=== PATIENT | male | born 1960 | race African-American/Black ===

== ENCOUNTER 2023-04-09 18:00 | Inpatient (IN) | payer SELFPAY ==
[~2023-04-09] VITALS: Ht 188 cm; Wt 108.6 kg
[2023-04-09] MEDS ORDERED: TETANUS, DIPHTHERIA, PERTUSSIS VAC/PF 0.5ML (>10YR OLD) IM ONE (19:00)
[2023-04-09 21:17] LABS: BASOPHILS % 0.6 % (0.0-2.0); EOSINOPHILS % 0.9 % (0.0-5.0); HEMATOCRIT. 38.7 % (42.0-52.0); HEMOGLOBIN. 12.7 g/dL (14.0-18.0); LYMPHOCYTES % 13.8 % (20.0-50.0); MEAN CORPUSCULAR HEMOGLOBIN 30.1 pg (28.0-32.0); MEAN CORPUSCULAR HGB CONC 32.8 g/dL (31.0-37.0); MEAN CORPUSCULAR VOLUME 91.7 fL (80.0-94.0); MEAN PLATELET VOLUME 9.7 fl (7.4-10.4); MONOCYTES % 11.4 % (2.0-8.0); NEUTROPHILS % 73.3 % (40.0-76.0); PLATELET 167 x1000/uL (130-400); RED BLOOD CELL COUNT 4.22 mill/uL (4.7-6.1); RED CELL DISTRIBUTION WIDTH 15.8 % (11.6-14.6); WHITE BLOOD COUNT 9.6 x1000/uL (4.5-11.0)
[2023-04-09] MEDS ORDERED: LEVETIRACETAM 500MG PREMIX 100 ML IV ONE ×2 (21:30)
[2023-04-09 21:36] LABS: ALANINE AMINOTRANSFERASE 50 IU/L (10-49); ALBUMIN 3.7 g/dL (3.2-4.8); ASPARTATE AMINOTRANSFERASE 171 IU/L (<34); CALCIUM 8.4 mg/dL (8.7-10.4); CARBON DIOXIDE 27 mEq/L (21-32); CHLORIDE 107 mEq/L (98-107); CREATINE KINASE 6384 IU/L (46-171); CREATININE 0.7 mg/dL (0.6-1.3); GLUCOSE 86 mg/dL (70-105); POTASSIUM 3.1 mEq/L (3.5-5.1); PROTEIN TOTAL 6.2 g/dL (6.0-8.3); SODIUM 140 mEq/L (136-145); UREA NITROGEN BLOOD 22 mg/dL (9-23)
[2023-04-09] MEDS ORDERED: POTASSIUM CHLORIDE 20MEQ/PACKET PO ONE (22:00)
[2023-04-10 01:10] VITALS: BP 116/86; PULSE 79; RESP 20; TEMP 98.2
[2023-04-10] MEDS ORDERED: ACETAMINOPHEN 325MG TABLET PO PRN ×2 (02:00)
[2023-04-10] MEDS ORDERED: MAGNESIUM/ALUMINUM HYDROXIDE/SIMETHICONE 30ML UDC PO PRN (02:00)
[2023-04-10] MEDS ORDERED: CLONIDINE 0.1MG TABLET PO PRN (02:00)
[2023-04-10] MEDS ORDERED: DOCUSATE SODIUM 100MG CAPSULE PO PRN (02:00)
[2023-04-10] MEDS ORDERED: LEVETIRACETAM 500 MG in SODIUM CHLORIDE 0.9% 100 ML IV SCH (02:00)
[2023-04-10] MEDS ORDERED: IPRATROPIUM/ALBUTEROL 0.5-3(2.5)MG/3ML NEB HHN PRN (02:00)
[2023-04-10] MEDS ORDERED: ONDANSETRON HCL 4MG/2ML INJ IV PRN (02:00)
[2023-04-10] MEDS ORDERED: GUAIFENESIN 200MG/10ML SUGAR FREE UDC PO PRN (02:00)
[2023-04-10] MEDS ORDERED: DEXTROSE 50% WATER 50ML SYRINGE IV PRN (03:15)
[2023-04-10 04:00] VITALS: BP 130/80; PULSE 79; RESP 20; TEMP 98.2
[2023-04-10] MEDS: PANTOPRAZOLE 40MG DR TABLET PO SCH (06:23)
[2023-04-10] MEDS: BLOOD SUGAR DIAGNOSTIC STRIP TEST SCH ×4 (06:25→21:48)
[2023-04-10] MEDS: INSULIN LISPRO 100 UNITS/ML SUBCUT SCH ×4 (07:40→21:00)
[2023-04-10 08:00] VITALS: BP 140/82; PULSE 88; RESP 16; TEMP 98.6
[2023-04-10] MEDS: LACTATED RINGERS 1,000 ML IV SCH ×2 (08:00→13:46)
[2023-04-10] MEDS ORDERED: LEVETIRACETAM 500MG PREMIX 100 ML IV SCH ×2 (09:00→10:00)
[2023-04-10] MEDS: ENOXAPARIN 40MG/0.4ML SYR SUBCUT SCH (09:40)
[2023-04-10 12:00] VITALS: BP 128/70; PULSE 84; RESP 16; TEMP 98
[2023-04-10] MEDS: SODIUM CHLORIDE 0.45% 1,000 ML IV SCH (19:00)
[2023-04-10 20:00] VITALS: BP 96/61; PULSE 76; RESP 20; TEMP 97.9
[2023-04-10] MEDS: LEVETIRACETAM 500MG TABLET PO SCH (21:50)
[2023-04-11] VITALS: BP 127/77; PULSE 74; RESP 20; TEMP 97.2
[2023-04-11 04:00] VITALS: BP 140/81; PULSE 59; RESP 20; TEMP 97.8
[2023-04-11] MEDS: SODIUM CHLORIDE 0.45% 1,000 ML IV SCH (04:15)
[2023-04-11] MEDS: PANTOPRAZOLE 40MG DR TABLET PO SCH (06:12)
[2023-04-11] MEDS: BLOOD SUGAR DIAGNOSTIC STRIP TEST SCH ×2 (06:13→12:56)
[2023-04-11] MEDS: INSULIN LISPRO 100 UNITS/ML SUBCUT SCH ×2 (07:40→12:40)
[2023-04-11 08:00] VITALS: BP 110/47; PULSE 69; RESP 20; TEMP 97.9
[2023-04-11 08:17] LABS: BASOPHILS % 0.5 % (0.0-2.0); EOSINOPHILS % 2.4 % (0.0-5.0); HEMATOCRIT. 40.9 % (42.0-52.0); HEMOGLOBIN. 13.7 g/dL (14.0-18.0); LYMPHOCYTES % 9.9 % (20.0-50.0); MEAN CORPUSCULAR HEMOGLOBIN 30.2 pg (28.0-32.0); MEAN CORPUSCULAR HGB CONC 33.5 g/dL (31.0-37.0); MEAN PLATELET VOLUME 9.9 fl (7.4-10.4); MONOCYTES % 11.1 % (2.0-8.0); NEUTROPHILS % 76.1 % (40.0-76.0); PLATELET 146 x1000/uL (130-400); RED BLOOD CELL COUNT 4.54 mill/uL (4.7-6.1); RED CELL DISTRIBUTION WIDTH 15.7 % (11.6-14.6); WHITE BLOOD COUNT 4.9 x1000/uL (4.5-11.0)
[2023-04-11 08:41] LABS: ALANINE AMINOTRANSFERASE 47 IU/L (10-49); ALBUMIN 3.3 g/dL (3.2-4.8); ASPARTATE AMINOTRANSFERASE 83 IU/L (<34); BILIRUBIN TOTAL 0.4 mg/dL (0.1-1.0); CALCIUM 8.4 mg/dL (8.7-10.4); CARBON DIOXIDE 27 mEq/L (21-32); CHLORIDE 104 mEq/L (98-107); CHOLESTEROL 140 mg/dL (<200); CREATINE KINASE 1220 IU/L (46-171); CREATININE 0.7 mg/dL (0.6-1.3); GLUCOSE 108 mg/dL (70-105); HDL CHOLESTEROL 27 mg/dL (>55); IRON 43 ug/dL (65-175); LDL CHOLESTEROL 104 mg/dL (5-100); PHOSPHORUS 2.6 mg/dL (2.5-4.9); POTASSIUM 3.9 mEq/L (3.5-5.1); PROTEIN TOTAL 5.9 g/dL (6.0-8.3); SODIUM 138 mEq/L (136-145); THYROID STIMULATING HORMONE 3.26 uIU/mL (0.55-4.78); TOTAL IRON BINDING CAPACITY 220 ug/dl (250-425); TRIGLYCERIDE 135 mg/dL (0-150); UREA NITROGEN BLOOD 18 mg/dL (9-23)
[2023-04-11] MEDS: ENOXAPARIN 40MG/0.4ML SYR SUBCUT SCH (09:15)
[2023-04-11] MEDS: LEVETIRACETAM 500MG TABLET PO SCH (09:15)
[2023-04-11 11:59] VITALS: BP 120/74; PULSE 88; TEMP 98; O2SAT 99
[2023-04-11 12:00] VITALS: BP 130/78; PULSE 82; RESP 16; TEMP 98
[2023-04-11] MEDS ORDERED: MAGNESIUM 2 G PREMIX 50 ML IV NR (12:00)
[2023-04-11 12:13] LABS: FOLIC ACID (FOLATE) SERUM 8.92 ng/mL (>5.38); VITAMIN B12 SERUM 486 pg/mL (211-911)
[2023-04-11] MEDS ORDERED: TOPUD PO (15:10)
[2023-04-11] MEDS ORDERED: KEPP500 PO (15:10)
[2023-04-12] MEDS ORDERED: FAMOTIDINE 20MG TABLET PO SCH (07:10)
== END 2023-04-11 15:12 | disposition home or self-care (01) | DRG 53 ==
LOC: ER 18:00 → MICUSO 22:17 → EDBEDREQ 22:20 → 8WST 04-10 02:54
PROVIDERS: ADMIT Internal Medicine; ATTEND Internal Medicine
PROC: 0HQ0XZZ Repair Scalp Skin, External Approach (ICD-10-PCS; principal; 2023-04-09)
DX: G40.909 Epilepsy, unspecified, not intractable, without status epilepticus (principal); M62.82 Rhabdomyolysis; E87.6 Hypokalemia; S01.01XA Laceration without foreign body of scalp, initial encounter; E11.9 Type 2 diabetes mellitus without complications; J44.9 Chronic obstructive pulmonary disease, unspecified; E83.42 Hypomagnesemia; E80.6 Other disorders of bilirubin metabolism; F17.210 Nicotine dependence, cigarettes, uncomplicated; Z91.148 Patient's other noncompliance with medication regimen for other reason; Z86.73 Personal history of transient ischemic attack (TIA), and cerebral infarction without residual deficits; Z59.00 Homelessness unspecified; Z79.899 Other long term (current) drug therapy; W18.30XA Fall on same level, unspecified, initial encounter; Y93.89 Activity, other specified; Y92.89 Other specified places as the place of occurrence of the external cause; Y99.8 Other external cause status
CPT/HCPCS: 36415; 80053; 80061; 82550; 82607; 82746; 82962; 83036; 83540; 83550; 83735; 84100; 84439; 84443; 85025; 90715; 93005; 93306; 93970; 97166; 99285; J1650; J1953; J3475; J7120

== ENCOUNTER 2024-06-11 02:10 | Emergency (ER) | payer MEDICAID, OTHER ==
[~2024-06-11] VITALS: Ht 188 cm; Wt 87.0 kg
[~2024-06-11 02:10] MED LIST: KEPP500 PO; TOPUD PO
[2024-06-11 02:18] VITALS: O2SAT 97
[2024-06-11] MEDS: LIDOCAINE 5% PATCH TOP SCH (03:00)
[2024-06-11] MEDS: CYCLOBENZAPRINE 10MG TABLET PO ONE (03:31)
[2024-06-11] MEDS: KETOROLAC 15MG/ML VIAL IM ONE (03:31)
[2024-06-11 03:58] VITALS: BP 109/77; PULSE 62; RESP 18; TEMP 36.9; O2SAT 97
[2024-06-11] MEDS ORDERED: NAPR-1176 MT (04:01)
[2024-06-11] MEDS ORDERED: LIDO700A15 TP (04:01)
== END 2024-06-11 04:09 | disposition home or self-care (01) ==
LOC: ER 02:10
DX: M54.50 Low back pain, unspecified (principal); I10 Essential (primary) hypertension; F19.90 Other psychoactive substance use, unspecified, uncomplicated
CPT/HCPCS: 99283; 96372; J1885

== ENCOUNTER 2024-08-08 21:58 | Emergency (ER) | payer MEDICAID ==
[~2024-08-08] VITALS: Ht 182.9 cm; Wt 100.0 kg
[~2024-08-08 21:58] MED LIST changes: +LIDO700A15 TP; +NAPR-1176 MT
[2024-08-08 22:08] VITALS: BP 136/80; PULSE 88; RESP 18; TEMP 37; O2SAT 99
== END 2024-08-08 23:02 | disposition home or self-care (01) ==
LOC: ER 21:58
DX: E11.65 Type 2 diabetes mellitus with hyperglycemia (principal); I10 Essential (primary) hypertension; Z59.00 Homelessness unspecified; Z79.1 Long term (current) use of non-steroidal anti-inflammatories (NSAID)
CPT/HCPCS: 99283

== ENCOUNTER 2024-08-09 00:08 | Emergency (ER) | payer MEDICAID ==
[~2024-08-09] VITALS: Ht 177.8 cm; Wt 73.0 kg
[2024-08-09 00:13] VITALS: O2SAT 98
[2024-08-09 00:14] VITALS: BP 109/85; PULSE 68; RESP 16; TEMP 36.7; O2SAT 98
== END 2024-08-09 07:47 | disposition home or self-care (01) ==
LOC: ER 00:08
DX: I10 Essential (primary) hypertension (principal); Z00.00 Encounter for general adult medical examination without abnormal findings; E11.9 Type 2 diabetes mellitus without complications; Z79.1 Long term (current) use of non-steroidal anti-inflammatories (NSAID)
CPT/HCPCS: 99281

== ENCOUNTER 2024-08-09 06:31 | Emergency (ER) | payer MEDICAID ==
[~2024-08-09] VITALS: Ht 182.9 cm; Wt 91.0 kg
[2024-08-09 06:44] VITALS: O2SAT 98
[2024-08-09 06:45] VITALS: BP 145/82; PULSE 77; RESP 16; TEMP 36.6; O2SAT 96
== END 2024-08-09 10:01 | disposition home or self-care (01) ==
LOC: ER 06:31
DX: Z00.8 Encounter for other general examination (principal); Z59.00 Homelessness unspecified; E11.9 Type 2 diabetes mellitus without complications; I10 Essential (primary) hypertension; Z79.1 Long term (current) use of non-steroidal anti-inflammatories (NSAID); Z79.899 Other long term (current) drug therapy
CPT/HCPCS: 99281

== ENCOUNTER 2024-12-19 05:15 | Inpatient (IN) | payer OTHER, MEDICAID ==
[~2024-12-19] VITALS: Ht 182.9 cm; Wt 90.8 kg
[~2024-12-19 05:15] MED LIST changes: +LIDO-53 TP; -LIDO700A15 TP; -NAPR-1176 MT; -TOPUD PO
[2024-12-19 05:40] VITALS: PULSE 91; RESP 20; O2SAT 98
[2024-12-19] MEDS: IPRATROPIUM BROMIDE (0.02%) 0.5MG/2.5ML NEB HHN SCH (05:40)
[2024-12-19] MEDS: ALBUTEROL (0.083%) 2.5MG/3ML NEB HHN SCH (05:40)
[2024-12-19] MEDS: METHYLPREDNISOLONE SOD SUCC 125MG/2ML (ACT-O-VIAL) IV ONE (05:49)
[2024-12-19] MEDS: MAGNESIUM 2 G PREMIX 50 ML IV ONE (05:50)
[2024-12-19 06:55] LABS: BASOPHILS % 0.6 % (0.0-2.0); EOSINOPHILS % 0.6 % (0.0-5.0); HEMATOCRIT. 42.4 % (42.0-52.0); HEMOGLOBIN. 13.8 g/dL (14.0-18.0); LYMPHOCYTES % 12.9 % (20.0-50.0); MEAN PLATELET VOLUME 9.0 fl (7.4-10.4); MONOCYTES % 11.2 % (2.0-8.0); NEUTROPHILS % 74.7 % (40.0-76.0); PLATELET 227 x1000/uL (130-400); RED BLOOD CELL COUNT 4.74 mill/uL (4.7-6.1); RED CELL DISTRIBUTION WIDTH 16.2 % (11.6-14.6)
[2024-12-19 06:59] LABS: CREATININE 0.9 mg/dL (0.6-1.3); UREA NITROGEN BLOOD 21 mg/dL (9-23)
[2024-12-19 07:06] LABS: TROPONIN I HIGH SENSITIVITY 90 ng/L (3.0-53)
[2024-12-19 08:00] VITALS: BP 136/96; PULSE 84; RESP 18; TEMP 36; O2SAT 100
[2024-12-19 08:52] LABS: TROPONIN I HIGH SENSITIVITY 91 ng/L (3.0-53)
[2024-12-19] MEDS ORDERED: DOCUSATE SODIUM 100MG CAPSULE PO PRN (11:00)
[2024-12-19] MEDS ORDERED: CLONIDINE 0.1MG TABLET PO PRN (11:00)
[2024-12-19] MEDS ORDERED: IPRATROPIUM/ALBUTEROL 0.5-3(2.5)MG/3ML NEB HHN PRN (11:00)
[2024-12-19] MEDS ORDERED: ACETAMINOPHEN 325MG TABLET PO PRN ×2 (11:00)
[2024-12-19] MEDS ORDERED: ONDANSETRON HCL 4MG/2ML INJ IV PRN (11:00)
[2024-12-19 11:07] LABS: CLARITY URINE CLEAR (CLEAR); COLOR URINE YELLOW (YELLOW); GLUCOSE URINE NEGATIVE (NEGATIVE); KETONES URINE NEGATIVE (NEGATIVE); LEUKOCYTE ESTERASE URINE NEGATIVE (NEGATIVE); NITRITE URINE NEGATIVE (NEGATIVE); OCCULT BLOOD URINE NEGATIVE (NEGATIVE); PH URINE 6.0 (4.5-8.0); PROTEIN URINE 1+ (NEGATIVE); SPECIFIC GRAVITY URINE 1.021 (1.005-1.030); UROBILINOGEN URINE 1.0 E.U./dL (0.2-1.0)
[2024-12-19 11:29] LABS: MUCUS URINE TRACE /lpf (NONE/TRACE)
[2024-12-19 11:30] LABS: SQUAMOUS EPITHELIAL CELL URINE RARE /lpf (RARE/1+); WBC URINE 0-2 /hpf (0-2)
[2024-12-19 11:31] LABS: BACTERIA URINE TRACE; RBC URINE 0-2 /hpf (0-2)
[2024-12-19 11:38] LABS: *AMPHETAMINES SCREEN URINE NEGATIVE (NEGATIVE); *BARBITURATES SCREEN URINE NEGATIVE (NEGATIVE); *BENZODIAZEPINES SCREEN URINE NEGATIVE (NEGATIVE); *COCAINE SCREEN URINE PRESUMPTIVE POSITIVE (NEGATIVE)
[2024-12-19 11:39] LABS: CANNABINOID URINE SCREEN PRESUMPTIVE POSITIVE (NEGATIVE); ECSTASY MDMA SCREEN URINE NEGATIVE (NEGATIVE); METHADONE URINE SCREEN NEGATIVE (NEGATIVE); OPIATES URINE SCREEN NEGATIVE (NEGATIVE); PHENCYCLIDINE URINE SCREEN NEGATIVE (NEGATIVE)
[2024-12-19 12:00] VITALS: BP 137/92; PULSE 83; RESP 18; TEMP 36.2; O2SAT 98
[2024-12-19 15:01] LABS: BG BASE EXCESS 1.4 mmol/L (-2.0-3.0); BG CARBOXYHEMOGLOBIN 1.0 % (0.5-1.5); BG DEOXYHEMOGLOBIN 4.6 % (0.0-5.0); BG FRACTION INSPIRED OXYGEN 21; BG HCO3 ACT 23.0 mmol/L (21.0-28.0); BG METHEMOGLOBIN 0.3 % (0.5-1.5); BG OXYGEN SATURATION 95.3 % (94.0-98.0); BG OXYHEMOGLOBIN 94.1 % (94.0-98.0); BG PCO2 28.6 mmHg (35.0-48.0); BG PH 7.524 (7.350-7.450); BG PO2 71.0 mmHg (83.0-108.0); BG SAMPLE SITE RIGHT RADIAL; BG TOTAL HEMOGLOBIN 14.1 g/dL (13.5-17.5); BG VENT MODE ROOM AIR
[2024-12-19 16:00] VITALS: BP 140/85; PULSE 74; RESP 19; TEMP 36.7
[2024-12-19 16:52] LABS: TROPONIN I HIGH SENSITIVITY 70 ng/L (3.0-53)
[2024-12-19 20:00] VITALS: BP 124/90; PULSE 84; RESP 18; TEMP 37
[2024-12-19] MEDS: LEVETIRACETAM 500MG TABLET PO SCH (20:53)
[2024-12-19] MEDS: BUDESONIDE 0.5MG/2ML NEB HHN SCH (21:05)
[2024-12-19] MEDS: IPRATROPIUM/ALBUTEROL 0.5-3(2.5)MG/3ML NEB HHN SCH (21:05)
[2024-12-20] VITALS (8 sets, daily range): BP systolic 117–146; BP diastolic 74–89; PULSE 20–88; RESP 16–22; TEMP 36.3–37.1; O2SAT 92–100
[2024-12-20 07:20] LABS: CREATININE 0.9 mg/dL (0.6-1.3); UREA NITROGEN BLOOD 19 mg/dL (9-23)
[2024-12-20 07:22] LABS: ASPARTATE AMINOTRANSFERASE 22 IU/L (<34); BILIRUBIN TOTAL 0.9 mg/dL (0.1-1.0); PROTEIN TOTAL 6.2 g/dL (6.0-8.3)
[2024-12-20 07:26] LABS: BASOPHILS % 0.4 % (0.0-2.0); EOSINOPHILS % 0.6 % (0.0-5.0); HEMATOCRIT. 42.7 % (42.0-52.0); HEMOGLOBIN. 13.8 g/dL (14.0-18.0); LYMPHOCYTES % 15.6 % (20.0-50.0); MEAN PLATELET VOLUME 9.1 fl (7.4-10.4); MONOCYTES % 12.2 % (2.0-8.0); NEUTROPHILS % 71.2 % (40.0-76.0); PLATELET 235 x1000/uL (130-400); RED BLOOD CELL COUNT 4.85 mill/uL (4.7-6.1); RED CELL DISTRIBUTION WIDTH 15.9 % (11.6-14.6)
[2024-12-20] MEDS: FUROSEMIDE 40MG/4ML VIAL IVP SCH (10:44)
[2024-12-20] MEDS: SPIRONOLACTONE 25MG TABLET PO SCH (11:12)
[2024-12-20] MEDS: LORAZEPAM 0.5MG TABLET PO SCH (11:13)
[2024-12-20] MEDS: METHYLPREDNISOLONE SOD SUCC 40MG/ML (ACT-O-VIAL) IV SCH (15:00)
[2024-12-20] MEDS ORDERED: ZOLPIDEM TARTRATE 5MG TABLET PO PRN (21:00)
[2024-12-20] MEDS: ENOXAPARIN 30MG/0.3ML SYR SUBCUT SCH (22:11)
[2024-12-21] VITALS: BP 110/64; PULSE 88; RESP 16; TEMP 36.3; O2SAT 99
[2024-12-21 04:00] VITALS: BP 119/86; PULSE 69; RESP 16; TEMP 36.5; O2SAT 100
[2024-12-21 08:00] VITALS: BP 109/71; PULSE 80; RESP 18; TEMP 36.1; O2SAT 95
[2024-12-21 09:53] VITALS: BP 132/57; PULSE 80; RESP 19; TEMP 36.1; O2SAT 95
== END 2024-12-21 12:27 | disposition left against medical advice (07) | DRG 133 ==
LOC: ER 05:15 → 5WST 06:26 → EDBEDREQ 06:36 → EDBEDREQTM 06:36 → ENRESERV 06:41 → 5WST 08:27
PROVIDERS: ADMIT Internal Medicine; ATTEND Internal Medicine
DX: J96.01 Acute respiratory failure with hypoxia (principal); I21.A1 Myocardial infarction type 2; I50.43 Acute on chronic combined systolic (congestive) and diastolic (congestive) heart failure; J44.1 Chronic obstructive pulmonary disease with (acute) exacerbation; I11.0 Hypertensive heart disease with heart failure; F14.10 Cocaine abuse, uncomplicated; E11.9 Type 2 diabetes mellitus without complications; Z20.822 Contact with and (suspected) exposure to COVID-19; Z53.29 Procedure and treatment not carried out because of patient's decision for other reasons; J98.4 Other disorders of lung; E78.5 Hyperlipidemia, unspecified; F17.210 Nicotine dependence, cigarettes, uncomplicated; Z59.00 Homelessness unspecified; Z79.899 Other long term (current) drug therapy; J68.0 Bronchitis and pneumonitis due to chemicals, gases, fumes and vapors
CPT/HCPCS: 36415; 36600; 71045; 80048; 80053; 80305; 81003; 82375; 82805; 83880; 84145; 84484; 85025; 87426; 93005; 94070; 94640; 94664; 99285; J1650; J1938; J2919; J3475; J7626

== ENCOUNTER 2025-03-19 17:32 | Inpatient (IN) | payer MEDICAID ==
[~2025-03-19] VITALS: Ht 175.3 cm; Wt 81.2 kg
[~2025-03-19 17:32] MED LIST changes: +ATOR40TA70 PO; +FURO40TA5 PO
[2025-03-19 20:56] LABS: GLUCOSE URINE NEGATIVE (NEGATIVE); KETONES URINE NEGATIVE (NEGATIVE); LEUKOCYTE ESTERASE URINE NEGATIVE (NEGATIVE); NITRITE URINE NEGATIVE (NEGATIVE); OCCULT BLOOD URINE NEGATIVE (NEGATIVE); PH URINE 5.0 (4.5-8.0); PROTEIN URINE 3+ (NEGATIVE); SPECIFIC GRAVITY URINE 1.022 (1.005-1.030); UROBILINOGEN URINE 1.0 E.U./dL (0.2-1.0)
[2025-03-19 20:59] LABS: *AMPHETAMINES SCREEN URINE NEGATIVE (NEGATIVE); *BARBITURATES SCREEN URINE NEGATIVE (NEGATIVE); *BENZODIAZEPINES SCREEN URINE NEGATIVE (NEGATIVE); *COCAINE SCREEN URINE PRESUMPTIVE POSITIVE (NEGATIVE); METHADONE URINE SCREEN NEGATIVE (NEGATIVE)
[2025-03-19 21:00] LABS: CANNABINOID URINE SCREEN PRESUMPTIVE POSITIVE (NEGATIVE); ECSTASY MDMA SCREEN URINE NEGATIVE (NEGATIVE); OPIATES URINE SCREEN NEGATIVE (NEGATIVE); PHENCYCLIDINE URINE SCREEN PRESUMTIVE POSITIVE (NEGATIVE)
[2025-03-19 21:11] LABS: HEMATOCRIT. 45.3 % (42.0-52.0); HEMOGLOBIN. 13.6 g/dL (14.0-18.0); MEAN PLATELET VOLUME 9.7 fl (7.4-10.4); PLATELET 191 x1000/uL (130-400); RED BLOOD CELL COUNT 4.95 mill/uL (4.7-6.1); RED CELL DISTRIBUTION WIDTH 17.4 % (11.6-14.6)
[2025-03-19 21:27] LABS: UREA NITROGEN BLOOD 37 mg/dL (9-23)
[2025-03-19 21:28] LABS: ASPARTATE AMINOTRANSFERASE 358 IU/L (<34)
[2025-03-19 21:29] LABS: BILIRUBIN DIRECT 0.8 mg/dL (<=3.0); BILIRUBIN TOTAL 1.4 mg/dL (0.1-1.0); PROTEIN TOTAL 6.6 g/dL (6.0-8.3)
[2025-03-19 21:32] LABS: LYMPHOCYTES % MANUAL 12.0 % (20.0-50.0); MONOCYTES % MANUAL 6.0 % (2.0-8.0); NEUTROPHILS % MANUAL 82.0 % (45.0-75.0); PLATELET ESTIMATE NORMAL
[2025-03-19] MEDS ORDERED: DEXTROSE 50% WATER 50ML SYRINGE IV ONE (21:45)
[2025-03-19] MEDS: ALBUTEROL (0.083%) 2.5MG/3ML NEB HHN SCH (21:47)
[2025-03-19] MEDS: METHYLPREDNISOLONE SOD SUCC 125MG/2ML (ACT-O-VIAL) IV ONE (21:52)
[2025-03-19 21:56] LABS: CREATININE 1.8 mg/dL (0.6-1.3)
[2025-03-19] MEDS: FUROSEMIDE 40MG/4ML VIAL IVP ONE (21:59)
[2025-03-19 22:00] LABS: BG DEOXYHEMOGLOBIN 0.3 % (0.0-5.0)
[2025-03-19 22:02] LABS: TROPONIN I HIGH SENSITIVITY 66 ng/L (3.0-53)
[2025-03-19 22:03] LABS: TROPONIN I HIGH SENSITIVITY 64 ng/L (3.0-53)
[2025-03-19 22:04] LABS: COLOR URINE YELLOW (YELLOW)
[2025-03-19 22:05] LABS: CLARITY URINE SL HAZY (CLEAR)
[2025-03-19 22:08] VITALS: PULSE 78; RESP 30; O2SAT 97
[2025-03-19] MEDS: INSULIN REGULAR (HUMULIN R) 1000UNITS/10ML VIAL IV ONE (22:09)
[2025-03-19 22:10] VITALS: PULSE 46; RESP 28
[2025-03-19] MEDS: CALCIUM GLUCONATE 100MG/ML 10ML VIAL IV ONE (22:10)
[2025-03-19] MEDS: DEXTROSE 50% WATER 50ML SYRINGE IV NR (22:10)
[2025-03-19 22:11] LABS: RBC URINE NONE SEEN /hpf (0-2); WBC URINE 0-2 /hpf (0-2)
[2025-03-19 22:12] LABS: BACTERIA URINE TRACE; RENAL EPITHELIAL CELLS URINE Rare /lpf; SQUAMOUS EPITHELIAL CELL URINE RARE /lpf (RARE/1+)
[2025-03-19 22:13] LABS: COARSE GRANULAR CASTS URINE 0-5 /lpf; HYALINE CASTS URINE 0-5 /lpf; MUCUS URINE TRACE /lpf (NONE/TRACE)
[2025-03-19 22:26] VITALS: PULSE 76; RESP 30
[2025-03-19] MEDS: AZITHROMYCIN 500MG/250ML 250 ML IV ONE (22:34)
[2025-03-20] VITALS (61 sets, daily range): BP systolic 95–124; BP diastolic 78–102; PULSE 39–51; RESP 0–32; TEMP 32.2–36.4; O2SAT 0–99
[2025-03-20] MEDS: CEFTRIAXONE 2GM/50ML 50 ML IV NR (00:50)
[2025-03-20 02:36] LABS: BG BASE EXCESS -12.6 mmol/L (-2.0-3.0); BG CARBOXYHEMOGLOBIN 0.9 % (0.5-1.5); BG DEOXYHEMOGLOBIN 0.1 % (0.0-5.0); BG FLOW(L/min) 15.00 L/min; BG FRACTION INSPIRED OXYGEN 100; BG HCO3 ACT 9.9 mmol/L (21.0-28.0); BG METHEMOGLOBIN 0.3 % (0.5-1.5); BG OXYGEN SATURATION 99.9 % (94.0-98.0); BG OXYHEMOGLOBIN 98.7 % (94.0-98.0); BG PCO2 17.7 mmHg (35.0-48.0); BG PH 7.366 (7.350-7.450); BG PO2 438.6 mmHg (83.0-108.0); BG SAMPLE SITE LEFT RADIAL; BG TOTAL HEMOGLOBIN 14.5 g/dL (13.5-17.5); BG VENT MODE MASK - NRB
[2025-03-20] MEDS ORDERED: NALOXONE HCL 0.4MG/ML VIAL IV PRN (03:00)
[2025-03-20] MEDS: IPRATROPIUM/ALBUTEROL 0.5-3(2.5)MG/3ML NEB HHN SCH (03:31)
[2025-03-20] MEDS: BLOOD SUGAR DIAGNOSTIC STRIP TEST SCH (07:30)
[2025-03-20] MEDS: INSULIN LISPRO 100 UNITS/ML SUBCUT SCH (08:00)
[2025-03-20] MEDS ORDERED: FUROSEMIDE 40MG TABLET PO SCH (09:00)
[2025-03-20] MEDS: MIDODRINE HCL 5MG TABLET PO SCH (09:57)
[2025-03-20] MEDS: LEVETIRACETAM 500MG TABLET PO SCH (09:57)
[2025-03-20] MEDS: AMLODIPINE 10MG TABLET PO NR (09:58)
[2025-03-20] MEDS: FUROSEMIDE 40MG/4ML VIAL IVP SCH (11:00)
[2025-03-20] MEDS: LIDOCAINE 5% PATCH TOP SCH (11:01)
[2025-03-20] MEDS ORDERED: AZITHROMYCIN 500MG/250ML 250 ML IV SCH ×2 (12:00→23:00)
[2025-03-20] MEDS: ENOXAPARIN 40MG/0.4ML SYR SUBCUT SCH (14:42)
[2025-03-20] MEDS: BUDESONIDE 0.5MG/2ML NEB HHN SCH (20:15)
[2025-03-20] MEDS ORDERED: QUETIAPINE FUMARATE 25MG TABLET PO SCH (21:00)
[2025-03-20] MEDS: DEXTROSE 50% WATER 50ML SYRINGE IV PRN (21:22)
[2025-03-20] MEDS: ATORVASTATIN CALCIUM 40MG TABLET PO SCH (21:24)
[2025-03-21] VITALS (51 sets, daily range): BP systolic 83–158; BP diastolic 27–113; PULSE 31–93; RESP 12–29; TEMP 36.1–37.11408; O2SAT 82–100
[2025-03-21] MEDS: CEFTRIAXONE 1GM/50ML 50 ML IV SCH (01:14)
[2025-03-21] MEDS: HYDROCODONE/ACETAMINOPHEN 10/325MG TABLET PO PRN (05:21)
[2025-03-21 07:01] LABS: TRIGLYCERIDE 90.0 mg/dL (0-150); UREA NITROGEN BLOOD 62.0 mg/dL (9-23)
[2025-03-21 07:02] LABS: LDL CHOLESTEROL 64.0 mg/dL (5-100)
[2025-03-21 07:22] LABS: HEMATOCRIT. 41.3 % (42.0-52.0); HEMOGLOBIN. 12.6 g/dL (14.0-18.0); MEAN PLATELET VOLUME 10.5 fl (7.4-10.4); PLATELET 139 x1000/uL (130-400); RED BLOOD CELL COUNT 4.61 mill/uL (4.7-6.1); RED CELL DISTRIBUTION WIDTH 17.1 % (11.6-14.6)
[2025-03-21 07:53] LABS: CREATININE 3.0 mg/dL (0.6-1.3)
[2025-03-21] MEDS ORDERED: CEFTRIAXONE 1GM/50ML 50 ML IV SCH (09:00)
[2025-03-21] MEDS: PIPERACILLIN/TAZO 3.375G/50ML 50 ML IV SCH (09:27)
[2025-03-21] MEDS ORDERED: DOPAMINE 400MG/250ML PREMIX 250 ML IV PRN (09:30)
[2025-03-21] MEDS ORDERED: SODIUM BICARBONATE 8.4% 50MEQ/50ML SYR IV SCH (09:30)
[2025-03-21] MEDS ORDERED: ALBUTEROL (0.083%) 2.5MG/3ML NEB HHN SCH (09:30)
[2025-03-21] MEDS ORDERED: SODIUM BICARBONATE 8.4% 50MEQ/50ML VIAL IV ONE (09:30)
[2025-03-21] MEDS ORDERED: CALCIUM GLUCONATE 100MG/ML 10ML VIAL IV ONE (09:30)
[2025-03-21] MEDS: INSULIN REGULAR (HUMULIN R) 1000UNITS/10ML VIAL IV SCH (09:30)
[2025-03-21] MEDS: DOPAMINE 400MG/250ML PREMIX 250 ML IV SCH (09:43)
[2025-03-21 10:00] LABS: BG BASE EXCESS -15.2 mmol/L (-2.0-3.0); BG CARBOXYHEMOGLOBIN 0.9 % (0.5-1.5); BG DEOXYHEMOGLOBIN 1.7 % (0.0-5.0); BG FLOW(L/min) 40.00 L/min; BG FRACTION INSPIRED OXYGEN 60; BG HCO3 ACT 9.6 mmol/L (21.0-28.0); BG METHEMOGLOBIN 0.3 % (0.5-1.5); BG OXYGEN SATURATION 98.3 % (94.0-98.0); BG OXYHEMOGLOBIN 97.1 % (94.0-98.0); BG PCO2 21.2 mmHg (35.0-48.0); BG PH 7.272 (7.350-7.450); BG PO2 140.3 mmHg (83.0-108.0); BG SAMPLE SITE RIGHT RADIAL; BG TOTAL HEMOGLOBIN 13.4 g/dL (13.5-17.5); BG VENT MODE HIGH FLOW
[2025-03-21] MEDS: SODIUM BICARBONATE 8.4% 50MEQ/50ML SYR IV SCH (10:13)
[2025-03-21] MEDS: CALCIUM GLUCONATE 100MG/ML 10ML VIAL IV SCH (11:06)
[2025-03-21] MEDS: DEXTROSE 50% WATER 50ML SYRINGE IV SCH (11:06)
[2025-03-21] MEDS: FUROSEMIDE 100MG/10ML VIAL IVP SCH (11:08)
[2025-03-21] MEDS: FUROSEMIDE 40MG/4ML VIAL IV SCH (11:09)
[2025-03-21] MEDS: LORAZEPAM 2MG/ML UD SYRINGE IV SCH (14:12)
[2025-03-21] MEDS: VANCOMYCIN 2GM PMX (XELLIA) 400 ML IV SCH (14:18)
[2025-03-21 17:39] LABS: INR 4.3
[2025-03-21 17:41] LABS: LYMPHOCYTES % MANUAL 3.0 % (20.0-50.0); MONOCYTES % MANUAL 4.0 % (2.0-8.0); NEUTROPHILS % MANUAL 93.0 % (45.0-75.0); PLATELET ESTIMATE NORMAL
[2025-03-21 17:48] LABS: HEPATITIS A AB IGM NEGATIVE (Negative)
[2025-03-21 17:49] LABS: HEPATITIS B CORE AB IGM NEGATIVE (Negative)
[2025-03-21 19:27] LABS: PROTEIN URINE RANDOM 118.0 mg/dL
[2025-03-21 19:30] LABS: CREATININE URINE RANDOM 51.4 mg/dL
[2025-03-21 19:37] LABS: CLARITY URINE CLOUDY (CLEAR); COLOR URINE DARK YELLOW (YELLOW); GLUCOSE URINE NEGATIVE (NEGATIVE); KETONES URINE TRACE (NEGATIVE); LEUKOCYTE ESTERASE URINE NEGATIVE (NEGATIVE); NITRITE URINE NEGATIVE (NEGATIVE); OCCULT BLOOD URINE 1+ (NEGATIVE); PH URINE 5.0 (4.5-8.0); PROTEIN URINE 2+ (NEGATIVE); SPECIFIC GRAVITY URINE 1.021 (1.005-1.030); UROBILINOGEN URINE 1.0 E.U./dL (0.2-1.0)
[2025-03-21 19:49] LABS: BACTERIA URINE 1+; SQUAMOUS EPITHELIAL CELL URINE RARE /lpf (RARE/1+); WBC URINE 0-2 /hpf (0-2)
[2025-03-21 20:15] LABS: INFLUENZA TYPE A Presumptive Negative (Pres. Neg.)
[2025-03-21 20:16] LABS: INFLUENZA TYPE B Presumptive Negative (Pres. Neg.)
[2025-03-21 21:12] LABS: HEPATITIS C AB REACTIVE (Pos) (Negative)
[2025-03-21] MEDS: DOXYCYCLINE HYCLATE 100MG CAPSULE PO SCH (21:54)
[2025-03-21] MEDS: PIPERACILLIN/TAZO 3.375G/50ML IV SCH (21:54)
[2025-03-22] VITALS (110 sets, daily range): BP systolic 76–128; BP diastolic 51–91; PULSE 56–114; RESP 0–28; TEMP 36.114–36.8; O2SAT 91–100
[2025-03-22 04:43] LABS: HEMATOCRIT. 37.0 % (42.0-52.0); HEMOGLOBIN. 11.8 g/dL (14.0-18.0); MEAN PLATELET VOLUME 9.6 fl (7.4-10.4); PLATELET 117 x1000/uL (130-400); RED BLOOD CELL COUNT 4.38 mill/uL (4.7-6.1); RED CELL DISTRIBUTION WIDTH 16.2 % (11.6-14.6)
[2025-03-22 04:53] LABS: CREATININE 2.3 mg/dL (0.6-1.3)
[2025-03-22 04:54] LABS: UREA NITROGEN BLOOD 67.0 mg/dL (9-23)
[2025-03-22] MEDS ORDERED: LIDOCAINE HCL 1% 10 MG/ML 10ML VIAL ONE (07:21)
[2025-03-22 10:09] LABS: BG BASE EXCESS 6.3 mmol/L (-2.0-3.0); BG CARBOXYHEMOGLOBIN 1.4 % (0.5-1.5); BG DEOXYHEMOGLOBIN 1.9 % (0.0-5.0); BG FLOW(L/min) 40.00 L/min; BG FRACTION INSPIRED OXYGEN 80; BG HCO3 ACT 31.6 mmol/L (21.0-28.0); BG METHEMOGLOBIN 0.1 % (0.5-1.5); BG OXYGEN SATURATION 98.1 % (94.0-98.0); BG OXYHEMOGLOBIN 96.6 % (94.0-98.0); BG PCO2 47.7 mmHg (35.0-48.0); BG PH 7.439 (7.350-7.450); BG PO2 119.7 mmHg (83.0-108.0); BG SAMPLE SITE RIGHT RADIAL; BG TOTAL HEMOGLOBIN 14.8 g/dL (13.5-17.5); BG VENT MODE HIGH FLOW
[2025-03-22] MEDS: PHENYLEPHRINE 50MG/250ML PMX 250 ML IV PRN (13:02)
[2025-03-22] MEDS: VANCOMYCIN 750MG PREMIX 150 ML IV SCH (20:32)
[2025-03-22 20:57] LABS: LYMPHOCYTES % MANUAL 3.0 % (20.0-50.0); MONOCYTES % MANUAL 2.0 % (2.0-8.0); NEUTROPHILS % MANUAL 95.0 % (45.0-75.0); NUCLEATED RED BLOOD CELLS 1 /100 WBC; PLATELET ESTIMATE DECREASED
[2025-03-23] VITALS (93 sets, daily range): BP systolic 90–122; BP diastolic 65–96; PULSE 61–130; RESP 10–25; TEMP 36.3–37; O2SAT 93–100
[2025-03-23 06:19] LABS: HEMATOCRIT. 36.4 % (42.0-52.0); HEMOGLOBIN. 12.0 g/dL (14.0-18.0); MEAN PLATELET VOLUME 9.2 fl (7.4-10.4); PLATELET 106 x1000/uL (130-400); RED BLOOD CELL COUNT 4.36 mill/uL (4.7-6.1); RED CELL DISTRIBUTION WIDTH 16.0 % (11.6-14.6)
[2025-03-23 06:38] LABS: UREA NITROGEN BLOOD 45 mg/dL (9-23)
[2025-03-23 06:44] LABS: CREATININE 1.4 mg/dL (0.6-1.3)
[2025-03-23] MEDS: MIDODRINE HCL 5MG TABLET PO SCH ×2 (14:25→21:24)
[2025-03-23] MEDS: VANCOMYCIN 500MG/100ML IV SCH (14:28)
[2025-03-23] MEDS: CALCIUM GLUCONATE 100MG/ML 10ML VIAL IV NR (14:33)
[2025-03-23 15:07] LABS: LYMPHOCYTES % MANUAL 2.0 % (20.0-50.0); MONOCYTES % MANUAL 6.0 % (2.0-8.0); NEUTROPHILS % MANUAL 92.0 % (45.0-75.0); PLATELET ESTIMATE NORMAL
[2025-03-23] MEDS ORDERED: DOPAMINE 400MG/250ML PREMIX 250 ML IV PRN (20:30)
[2025-03-24] VITALS (28 sets, daily range): BP systolic 71–119; BP diastolic 49–99; PULSE 62–122; RESP 14–25; TEMP 36.5–36.8; O2SAT 95–100
[2025-03-24 04:19] LABS: HEMATOCRIT. 39.3 % (42.0-52.0); HEMOGLOBIN. 12.8 g/dL (14.0-18.0); MEAN PLATELET VOLUME 9.2 fl (7.4-10.4); PLATELET 111 x1000/uL (130-400); RED BLOOD CELL COUNT 4.70 mill/uL (4.7-6.1); RED CELL DISTRIBUTION WIDTH 16.1 % (11.6-14.6)
[2025-03-24 04:37] LABS: CREATININE 1.1 mg/dL (0.6-1.3); UREA NITROGEN BLOOD 34 mg/dL (9-23)
[2025-03-24 04:39] LABS: PHOSPHORUS 3.0 mg/dL (2.5-4.9)
[2025-03-24 05:26] LABS: LYMPHOCYTES % MANUAL 8.0 % (20.0-50.0); MONOCYTES % MANUAL 3.0 % (2.0-8.0); NEUTROPHILS % MANUAL 89.0 % (45.0-75.0); PLATELET ESTIMATE NORMAL
[2025-03-24] MEDS: POTASSIUM CHLORIDE 20MEQ TABLET SR PO NR (05:39)
[2025-03-24] MEDS: MIDODRINE HCL 5MG TABLET PO SCH (05:40)
[2025-03-24] MEDS ORDERED: MAGNESIUM 2 G PREMIX 50 ML IV NR (06:45)
[2025-03-24] MEDS: PIPERACILLIN/TAZO 3.375G/50ML IV SCH (08:48)
[2025-03-24] MEDS: VANCOMYCIN 1GM PMX (XELLIA) 200 ML IV SCH (12:23)
[2025-03-24] MEDS: CALCIUM GLUCONATE 100MG/ML 10ML VIAL IV NR (12:23)
[2025-03-24] MEDS: MAGNESIUM 2 G PREMIX 50 ML IV SCH (13:51)
[2025-03-24 22:41] LABS: INR 1.5
[2025-03-25] VITALS (17 sets, daily range): BP systolic 66–171; BP diastolic 42–150; PULSE 63–85; RESP 13–22; TEMP 36.3–36.7; O2SAT 91–100
[2025-03-25 07:59] LABS: BASOPHILS % 0.1 % (0.0-2.0); EOSINOPHILS % 0.4 % (0.0-5.0); HEMATOCRIT. 41.4 % (42.0-52.0); HEMOGLOBIN. 13.5 g/dL (14.0-18.0); LYMPHOCYTES % 9.0 % (20.0-50.0); MEAN PLATELET VOLUME 9.2 fl (7.4-10.4); MONOCYTES % 12.6 % (2.0-8.0); NEUTROPHILS % 77.9 % (40.0-76.0); PLATELET 124 x1000/uL (130-400); RED BLOOD CELL COUNT 4.95 mill/uL (4.7-6.1); RED CELL DISTRIBUTION WIDTH 16.6 % (11.6-14.6)
[2025-03-25 08:15] LABS: CREATININE 1.0 mg/dL (0.6-1.3); UREA NITROGEN BLOOD 25 mg/dL (9-23)
[2025-03-25 08:17] LABS: PHOSPHORUS 2.2 mg/dL (2.5-4.9)
[2025-03-25] MEDS ORDERED: EMPA10TA MT (10:27)
[2025-03-25] MEDS ORDERED: SPIR25TA6 MT (10:27)
[2025-03-25] MEDS ORDERED: LIP40 MT (10:27)
[2025-03-25] MEDS ORDERED: APIX2.5T MT (10:27)
[2025-03-25] MEDS ORDERED: FURO80TA87 MT (10:27)
[2025-03-25] MEDS ORDERED: MIDO5TAB4 PO (10:27)
[2025-03-25] MEDS: MAGNESIUM 2 G PREMIX 50 ML IV SCH (12:10)
[2025-03-25] MEDS: SODIUM PHOSPHATE 30 MMOL in DEXT 5% WATER 490 ML IV SCH (12:10)
[2025-03-25] MEDS: ENOXAPARIN 100MG/ML SYR SUBCUT SCH (23:32)
[2025-03-26] VITALS (13 sets, daily range): BP systolic 77–126; BP diastolic 57–78; PULSE 63–85; RESP 13–27; TEMP 36.2–36.8; O2SAT 97–100
[2025-03-26] MEDS: IOHEXOL-350 100 ML BOTTLE ONE (18:43)
[2025-03-27] VITALS (9 sets, daily range): BP systolic 86–99; BP diastolic 65–72; PULSE 65–77; RESP 13–19; TEMP 36.3–37.4; O2SAT 97–99
== END 2025-03-27 15:06 | disposition home or self-care (01) | DRG 720 ==
LOC: ER 17:32 → 5EST 22:37 → EDBEDREQTM 22:54 → EDBEDREQ 22:54 → ENRESERV 23:18 → MICUSO 03-21 11:57 → 5EST 03-24 06:40
PROVIDERS: ADMIT Internal Medicine; ATTEND Internal Medicine
PROC: 5A0945A Assistance with Respiratory Ventilation, 24-96 Consecutive Hours, High Flow/Velocity Cannula (ICD-10-PCS; principal; 2025-03-20)
PROC: 5A1D70Z Performance of Urinary Filtration, Intermittent, Less than 6 Hours Per Day (ICD-10-PCS; 2025-03-21)
PROC: 06HY33Z Insertion of Infusion Device into Lower Vein, Percutaneous Approach (ICD-10-PCS; 2025-03-21)
PROC: B54BZZA Ultrasonography of Right Lower Extremity Veins, Guidance (ICD-10-PCS; 2025-03-21)
PROC: 5A1D70Z Performance of Urinary Filtration, Intermittent, Less than 6 Hours Per Day (ICD-10-PCS; 2025-03-22)
PROC: 02HV33Z Insertion of Infusion Device into Superior Vena Cava, Percutaneous Approach (ICD-10-PCS; 2025-03-22)
PROC: B548ZZA Ultrasonography of Superior Vena Cava, Guidance (ICD-10-PCS; 2025-03-22)
PROC: 5A0935A Assistance with Respiratory Ventilation, Less than 24 Consecutive Hours, High Flow/Velocity Cannula (ICD-10-PCS; 2025-03-22)
DX: A41.9 Sepsis, unspecified organism (principal); N17.0 Acute kidney failure with tubular necrosis; I50.43 Acute on chronic combined systolic (congestive) and diastolic (congestive) heart failure; J96.01 Acute respiratory failure with hypoxia; G93.40 Encephalopathy, unspecified; R18.8 Other ascites; J18.9 Pneumonia, unspecified organism; R65.20 Severe sepsis without septic shock; Z79.01 Long term (current) use of anticoagulants; D64.9 Anemia, unspecified; E11.22 Type 2 diabetes mellitus with diabetic chronic kidney disease; F14.10 Cocaine abuse, uncomplicated; G40.909 Epilepsy, unspecified, not intractable, without status epilepticus; J43.9 Emphysema, unspecified; I13.0 Hypertensive heart and chronic kidney disease with heart failure and stage 1 through stage 4 chronic kidney disease, or unspecified chronic kidney disease; Z20.822 Contact with and (suspected) exposure to COVID-19; E87.20 Acidosis, unspecified; I21.A1 Myocardial infarction type 2; E87.1 Hypo-osmolality and hyponatremia; Z91.148 Patient's other noncompliance with medication regimen for other reason; F99 Mental disorder, not otherwise specified; R68.0 Hypothermia, not associated with low environmental temperature; E87.5 Hyperkalemia; G43.919 Migraine, unspecified, intractable, without status migrainosus; R74.01 Elevation of levels of liver transaminase levels; N18.1 Chronic kidney disease, stage 1; R80.9 Proteinuria, unspecified; I48.91 Unspecified atrial fibrillation; E83.51 Hypocalcemia; Z79.84 Long term (current) use of oral hypoglycemic drugs; Z79.899 Other long term (current) drug therapy; Z71.51 Drug abuse counseling and surveillance of drug abuser
CPT/HCPCS: 36415; 36573; 36600; 71045; 71275; 76770; 77001; 80048; 80061; 80076; 80202; 80305; 80320; 81003; 82375; 82550; 82570; 82803; 82805; 82962; 83605; 83735; 83880; 84100; 84132; 84145; 84156; 84443; 84484; 85025; 85379; 86705; 86709; 87340; 87426; 87804; 90935; 93005; 93306; 94070; 94640; 94664; 97162; 98960; 99285; A4606; C1725; J0456; J0612; J0696; J1265; J1650; J1815; J1938; J2003; J2060; J2371; J2543; J2919; J3373; J3475; J3490; J7060; J7626; Q9967; G0480